=== PATIENT | female | born 1995 | race Two or more races ===

== ENCOUNTER → 2017-12-21 | Outpatient (CLI) | payer OTHER | END | disposition home or self-care (01) | LOC: SONOGRAMA 09:02 | DX: N60.11 Diffuse cystic mastopathy of right breast (principal) ==

== ENCOUNTER 2020-11-18 16:08 | Outpatient (CLI) | payer OTHER | END 2020-11-18 16:13 | disposition home or self-care (01) | LOC: LAB 16:08 | PROVIDERS: ATTEND Internal Medicine Gastroenterology | DX: R19.5 Other fecal abnormalities (principal); Z34.00 Encounter for supervision of normal first pregnancy, unspecified trimester ==

== ENCOUNTER 2021-07-30 12:05 | Emergency (ER) | payer OTHER ==
[~2021-07-30] VITALS: Ht 160 cm; Wt 68.5 kg
== END 2021-07-30 16:43 | disposition home or self-care (01) ==
LOC: ER 12:05
DX: U07.1 COVID-19 (principal); E86.0 Dehydration

== ENCOUNTER 2022-04-16 05:42 | Emergency (ER) | payer OTHER ==
[~2022-04-16] VITALS: Ht 160 cm; Wt 72.6 kg
[2022-04-16] MEDS ORDERED: ALLEGRA ALLERG180 MG (05:58)
[2022-04-16] MEDS ORDERED: ZYRTEC10 M3 (05:58)
== END 2022-04-16 10:23 | disposition home or self-care (01) ==
LOC: ER 05:42
DX: U07.1 COVID-19 (principal); G43.909 Migraine, unspecified, not intractable, without status migrainosus

== ENCOUNTER 2022-11-16 13:30 | Outpatient (CLI) | payer OTHER ==
[~2022-11-16 13:30] MED LIST: ALLEGRA ALLERG180 MG; ZYRTEC10 M3
== END 2022-11-16 13:41 | disposition home or self-care (01) ==
LOC: SONOGRAMA 13:30
DX: E04.1 Nontoxic single thyroid nodule (principal)

== ENCOUNTER 2022-11-20 21:01 | Emergency (ER) | payer OTHER ==
[~2022-11-20] VITALS: Ht 160 cm; Wt 73.0 kg
[2022-11-20] MEDS ORDERED: WELLBUTRIN XL150 M1 PO (21:18)
== END 2022-11-20 21:50 | disposition home or self-care (01) ==
LOC: ER 21:01
DX: R21 Rash and other nonspecific skin eruption (principal); R07.0 Pain in throat

== ENCOUNTER 2022-12-26 12:03 | Outpatient (CLI) | payer OTHER ==
[~2022-12-26 12:03] MED LIST changes: +WELLBUTRIN XL150 M1 PO
== END 2022-12-26 12:06 | disposition home or self-care (01) ==
LOC: SONOGRAMA 12:03
PROVIDERS: ATTEND Family Medicine
DX: N60.11 Diffuse cystic mastopathy of right breast (principal)